=== PATIENT | female | born 1995 | race Caucasian/White ===

== ENCOUNTER 2017-08-23 20:39 | Emergency (ER) | payer BC ==
--- NOTE | 2017-08-23 22:05 | EDPHYS ---
Physician Documentation [facility] Name: May Ojeda Age: 22 yrs Sex: Female : 1995 Arrival Date: 08/23/2017 Time: 20:42 Bed 30 Private MD: ED Physician Mauri Mcneil HPI: 08/23 22:34 This 22 yrs old Female presents to ER via Ambulatory with complaints of Back jr8 Pain. 22:34 The patient presents with pain that is acute. The symptoms are located in the low back. jr8 Onset: The symptoms/episode began/occurred acutely, today. The pain radiates. Associated signs and symptoms: The patient has no apparent associated signs or symptoms. The problem was sustained from unknown cause. Modifying factors: The patient symptoms are alleviated by nothing, the patient symptoms are aggravated by bending, movement. Severity of symptoms: At their worst the symptoms were moderate, in the emergency department the symptoms are unchanged. The patient has not experienced similar symptoms in the past. The patient has not recently seen a physician. Stated that she woke up with backache today. Does not recall hurting back. Denies urinary complaints. Pain radiates to left hip region. 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 - Social history:: Smoking status: Patient uses tobacco products, smokes one-half pack cigarettes per day. ROS: 22:34 Eyes: Negative for injury, pain, redness, and discharge, ENT: Negative for injury, jr8 pain, and discharge, Neck: Negative for injury, pain, and swelling, Cardiovascular: Negative for chest pain, palpitations, and edema, Respiratory: Negative for shortness of breath, cough, wheezing, and pleuritic chest pain, Abdomen/GI: Negative for abdominal pain, nausea, vomiting, diarrhea, and constipation, MS/Extremity: Negative for injury and deformity, Skin: Negative for injury, rash, and discoloration, Neuro: Negative for headache, weakness, numbness, tingling, and seizure. 22:34 Back: Positive for pain at rest, pain with movement, radiated pain, of the left low back and left mid back. Exam: 22:34 Eyes: Pupils equal round and reactive to light, extra-ocular motions intact. Lids and jr8 lashes normal. Conjunctiva and sclera are non-icteric and not injected. Cornea within normal limits. Periorbital areas with no swelling, redness, or edema. ENT: Nares patent. No nasal discharge, no septal abnormalities noted. Tympanic membranes are normal and external auditory canals are clear. Oropharynx with no redness, swelling, or masses, exudates, or evidence of obstruction, uvula midline. Mucous membranes moist. Neck: Trachea midline, no thyromegaly or masses palpated, and no cervical lymphadenopathy. Supple, full range of motion without nuchal rigidity, or vertebral point tenderness. No Meningismus. Cardiovascular: Regular rate and rhythm with a normal S1 and S2. No gallops, murmurs, or rubs. Normal PMI, no JVD. No pulse deficits. Respiratory: Lungs have equal breath sounds bilaterally, clear to auscultation and percussion. No rales, rhonchi or wheezes noted. No increased work of breathing, no retractions or nasal flaring. Abdomen/GI: Soft, non-tender, with normal bowel sounds. No distension or tympany. No guarding or rebound. No evidence of tenderness throughout. Skin: Warm, dry with normal turgor. Normal color with no rashes, no lesions, and no evidence of cellulitis. MS/ Extremity: Pulses equal, no cyanosis. Neurovascular intact. Full, normal range of motion. Neuro: Awake and alert, GCS 15, oriented to person, place, time, and situation. Cranial nerves II-XII grossly intact. Motor strength 5/5 in all extremities. Sensory grossly intact. Cerebellar exam normal. Normal gait. 22:34 Back: pain, that is moderate, of the left low back and left mid back, ROM is painful, normal spinal alignment noted, CVA tenderness, is absent, muscle spasm, is appreciated in the left low back and left mid back, Straight leg raises: left lower extremity illicits pain, at 45 degrees. Vital Signs: 20:46 BP 140 / 90; Pulse 101; Resp 19; Temp 98.2(TE); Pulse Ox 100% on R/A; Weight 100.24 kg; la1 Height 5 ft. 6 in. (167.64 cm); 22:18 BP 133 / 56; Pulse 80; Resp 18; Pulse Ox 100% ; tl3 20:46 Body Mass Index 35.67 (100.24 kg, 167.64 cm) la1 MDM: 21:28 Patient medically screened. jr8 22:04 Data reviewed: vital signs, nurses notes, lab test result(s), and as a result, I will jr8 discharge patient. Data interpreted: Pulse oximetry: on room air is 100 %. Interpretation: normal. Counseling: I had a detailed discussion with the patient and/or guardian regarding: the historical points, exam findings, and any diagnostic results supporting the discharge/admit diagnosis, lab results, the need for outpatient follow up, a family practitioner, to return to the emergency department if symptoms worsen or persist or if there are any questions or concerns that arise at home. 22:04 Response to treatment: the patient's symptoms have markedly improved after treatment. 8 08/23 21:53 Order name: Urine Dipstick--Ancillary (enter results) rg2 08/23 21:53 Order name: Urine --Ancillary (enter results) rg2 Administered Medications: 22:14 Drug: Flexeril 10 mg Route: PO; tl3 22:15 Follow up: Response: Medication administered at discharge. tl3 22:15 Drug: [place] (7.5 mg-325 mg) 1 tabs Route: PO; tl3 22:16 Follow up: Response: Medication administered at discharge. tl3 22:15 Drug: TORadol 60 mg Route: IM; Site: right vastus lateralis; tl3 22:16 Follow up: Response: Medication administered at discharge. tl3 Disposition: 08/24 08:04 Co-signature as Attending Physician, Mauri Mcneil MD I agree with the assessment and nav plan of care. Disposition: 08/23/17 22:05 Discharged to Home. Impression: Muscle spasm of back, Radiculopathy, lumbar region. - Condition is Stable. - Discharge Instructions: Muscle Cramps and Spasms, Back Exercises, [id number], Heat Therapy. - Prescriptions for Ibuprofen 800 mg Oral Tablet - take 1 tablet by ORAL route every 12 hours As needed take with food; 20 tablet. Cyclobenzaprine 10 mg Oral Tablet - take 1 tablet by ORAL route every 8 hours As needed; 30 tablet. Tramadol 50 mg Oral Tablet - take 1 tablet by ORAL route every 8 hours as needed; 12 tablet. - Medication Reconciliation Form, Thank You Letter, Antibiotic Education, Prescription Opioid Use form. - Follow up: Private Physician; When: 5 - 6 days; Reason: Recheck today's complaints, Continuance of care, Re-evaluation by your physician. - Problem is new. - Symptoms have improved. Signatures: Dispatcher [employer] EDMS Marui Mcneil MD MD cha Roszak, Josh, PA PA jr8 Pietro Hutson RN RN la1 Audrey Mccabe RN RN tl3 Corrections: (The following items were deleted from the chart) 08/23 22:19 22:05 08/23/2017 22:05 Discharged to Home. Impression: Muscle spasm of back; tl3 Radiculopathy, lumbar region. Condition is Stable. Forms are Medication Reconciliation Form, Thank You Letter, Antibiotic Education, Prescription Opioid Use. Follow up: Private Physician; When: 5 - 6 days; Reason: Recheck today's complaints, Continuance of care, Re-evaluation by your physician. Problem is new. Symptoms have improved. jr8
--- NOTE | 2017-08-23 22:05 | ER ---
Nurse's Notes [facility] Name: May Ojeda Age: 22 yrs Sex: Female : 1995 Arrival Date: 08/23/2017 Time: 20:42 Bed 30 Private MD: Diagnosis: Muscle spasm of back;Radiculopathy, lumbar region Presentation: 08/23 20:45 Presenting complaint: Patient states: I woke up with a pain in my left lower back that la1 radiates to my hip. Pt denies urinary sx. Transition of care: patient was not received from another setting of care. Onset of symptoms was August 23, 2017. Initial Sepsis Screen: Does the patient meet any 2 criteria? No. Patient's initial sepsis screen is negative. Does the patient have a suspected source of infection? No. Patient's initial sepsis screen is negative. Care prior to arrival: None. 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 - Social history:: Smoking status: Patient uses tobacco products, smokes one-half pack cigarettes per day. Screenin:50 Abuse screen: Denies threats or abuse. Nutritional screening: No deficits noted. tl3 Tuberculosis screening: No symptoms or risk factors identified. Fall Risk None identified. Assessment: 21:50 General: Appears in no apparent distress. comfortable, obese, well groomed, well tl3 developed, well nourished, Behavior is calm, cooperative, appropriate for age. Pain: Complains of pain in left flank. Neuro: Level of Consciousness is awake, alert, obeys commands, Oriented to person, place, time, situation, Appropriate for age. Cardiovascular: Heart tones S1 S2 present Patient's skin is warm and dry. Respiratory: Airway is patent Trachea midline Respiratory effort is even, unlabored, Respiratory pattern is regular, symmetrical. GI: No signs and/or symptoms were reported involving the gastrointestinal system. : No signs and/or symptoms were reported regarding the genitourinary system. Urine is clear. EENT: No signs and/or symptoms were reported regarding the EENT system. Derm: No signs and/or symptoms reported regarding the dermatologic system. Musculoskeletal: No signs and/or symptoms reported regarding the musculoskeletal system. 22:18 Reassessment: No changes from previously documented assessment. Patient and/or family tl3 updated on plan of care and expected duration. Pain level reassessed. Patient is alert, oriented x 3, equal unlabored respirations, skin warm/dry/pink. Vital Signs: 20:46 BP 140 / 90; Pulse 101; Resp 19; Temp 98.2(TE); Pulse Ox 100% on R/A; Weight 100.24 kg; la1 Height 5 ft. 6 in. (167.64 cm); 22:18 BP 133 / 56; Pulse 80; Resp 18; Pulse Ox 100% ; tl3 20:46 Body Mass Index 35.67 (100.24 kg, 167.64 cm) la1 ED Course: 20:42 Patient arrived in ED. ds1 20:45 Triage completed. la1 20:46 Arm band placed on left wrist. la1 21:26 Audrey Mccabe, JOHNNIE is Primary Nurse. tl3 21:28 Hunter Elias PA is PHCP. jr8 21:28 Mauri Mcneil MD is Attending Physician. jr8 21:50 No apparent distress. Awaiting ED provider evaluation. tl3 21:50 Patient has correct armband on for positive identification. Placed in gown. Bed in low tl3 position. Call light in reach. Side rails up X 1. Adult w/ patient. Pulse ox on. NIBP on. 21:50 No provider procedures requiring assistance completed. Patient did not have IV access tl3 during this emergency room visit. Administered Medications: 22:14 Drug: Flexeril 10 mg Route: PO; tl3 22:15 Follow up: Response: Medication administered at discharge. tl3 22:15 Drug: [place] (7.5 mg-325 mg) 1 tabs Route: PO; tl3 22:16 Follow up: Response: Medication administered at discharge. tl3 22:15 Drug: TORadol 60 mg Route: IM; Site: right vastus lateralis; tl3 22:16 Follow up: Response: Medication administered at discharge. tl3 Outcome: 22:05 Discharge ordered by . jr8 22:18 Discharged to home ambulatory. tl3 22:18 Condition: good 22:18 Discharge instructions given to patient, Instructed on discharge instructions, follow up and referral plans. medication usage, Demonstrated understanding of instructions, follow-up care, medications, Prescriptions given X 3. 22:19 Patient left the ED. tl3 Signatures: Tara Mckinney Josh, PA PA jr8 Pietro Hutson RN RN la1 Audrey Mccabe RN RN tl3
[2017-08-23] MEDS ORDERED: KETOROLAC 30 MG/ML INJ ONE (22:09)
[2017-08-23] MEDS ORDERED: CYCLOBENZAPRINE 10 MG TAB ONE (22:09)
[2017-08-23] MEDS ORDERED: HYDROCODONE/APAP 7.5/325 MG TAB ONE (22:09)
[2017-08-23 22:22] LABS: Urine Blood NEGATIVE (NEG); Urine Glucose NEGATIVE (NEG); Urine Protein NEGATIVE (NEG); Urine pH 6.5 (5.0-7.0)
[2017-08-23 22:57] VITALS: TEMP 98.2; O2SAT 100
[2017-08-23 22:58] VITALS: BP 133/56
== END 2017-08-23 22:19 | disposition home or self-care (01) ==
LOC: ER 20:39
DX: M54.16 Radiculopathy, lumbar region (principal); M62.830 Muscle spasm of back; F17.210 Nicotine dependence, cigarettes, uncomplicated; Z88.1 Allergy status to other antibiotic agents
CPT/HCPCS: 81003; 81025; 96372; 99283

== ENCOUNTER 2018-01-12 19:27 | Emergency (ER) | payer BC, OTHER ==
[2018-01-12] MEDS ORDERED: ONDANSETRON 4 MG (ODT) TAB ONE (21:04)
[2018-01-12 21:11] LABS: Urine Blood NEGATIVE (NEG); Urine Glucose NEGATIVE (NEG); Urine Protein TRACE (NEG); Urine pH 6.5 (5.0-7.0)
[2018-01-12 21:11] LABS: Urine Bacteria <20 /HPF (<20); Urine Culture Reflex Order NOT NEEDED; Urine Mucus 1+ /HPF (NONE SEEN); Urine RBC <5 /HPF (NONE SEEN)
[2018-01-13] MEDS ORDERED: NA CHLORIDE 0.9% 1,000 ML ONE (00:11)
[2018-01-13] MEDS ORDERED: FAMOTIDINE 20 MG/2 ML VIAL IV ONE (00:11)
[2018-01-13] MEDS ORDERED: ONDANSETRON 4 MG/2 ML VIAL ONE (00:11)
[2018-01-13 00:39] LABS: Absolute Lymphocytes (CBC) 3.2 K/uL (0.7-4.9); Absolute Monocytes 0.6 K/uL (0.1-1.3); Basophils % 0.8 % (0-1.3); Eosinophils % 2.3 % (0-4.4); Hematocrit 38.2 % (36.0-45.0); Lymphocytes % 35.1 % (15.3-44.8); MCH 29.4 pg (27.0-35.0); MCV 84.7 fL (80-100); MPV 8.1 fL (7.6-11.3); Monocytes % 6.4 % (3.3-12.3); RBC Red Blood Cell Count 4.51 M/uL (3.86-4.86)
[2018-01-13 00:51] LABS: ALT/SGPT 23 U/L (12-78); AST/SGOT 16 U/L (15-37); Albumin 3.8 g/dL (3.4-5.0); Alkaline Phosphatase 63 U/L (45-117); BUN Blood Urea Nitrogen 12 mg/dL (7-18); Bicarbonate 28 mmol/L (21-32); Bilirubin Direct < 0.1 mg/dL (0-0.2); Bilirubin Total 0.2 mg/dL (0.2-1.0); Glucose Level 108 mg/dL (74-106); Lipase 190 U/L (73-393); Potassium 3.8 mmol/L (3.5-5.1); Protein, Total 7.9 g/dL (6.4-8.2); Sodium Level 141 mmol/L (136-145)
--- NOTE | 2018-01-13 00:59 | EDPHYS ---
Physician Documentation [facility] Name: May Ojeda Age: 22 yrs Sex: Female : 1995 Arrival Date: 01/12/2018 Time: 19:31 Bed 2 Private MD: Gigi Alcala T ED Physician Adrián Morris HPI: 01/13 02:04 This 22 yrs old Female presents to ER via Ambulatory with complaints of gs Abdominal Cramping, Vomiting. 02:04 The patient presents to the emergency department with vomiting, abdominal pain, gs described as crampy. Onset: The symptoms/episode began/occurred yesterday. Possible causes: unknown. The symptoms are aggravated by nothing. The symptoms are alleviated by nothing. Associated signs and symptoms: Pertinent positives: abdominal pain, crampy. Severity of symptoms: At their worst the symptoms were moderate in the emergency department the symptoms have improved moderately. The patient has not experienced similar symptoms in the past. The patient has not recently seen a physician. 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 - Social history:: Smoking status: Patient uses tobacco products, smokes one-half pack cigarettes per day. - Ebola Screening: : Patient denies travel to an Ebola-affected area in the 21 days before illness onset. ROS: 01/13 02:04 All other systems are negative. gs Exam: 02:04 Head/Face: Normocephalic, atraumatic. Eyes: Pupils equal round and reactive to light, gs extra-ocular motions intact. Lids and lashes normal. Conjunctiva and sclera are non-icteric and not injected. Cornea within normal limits. Periorbital areas with no swelling, redness, or edema. ENT: Nares patent. No nasal discharge, no septal abnormalities noted. Tympanic membranes are normal and external auditory canals are clear. Oropharynx with no redness, swelling, or masses, exudates, or evidence of obstruction, uvula midline. Mucous membranes moist. Neck: Trachea midline, no thyromegaly or masses palpated, and no cervical lymphadenopathy. Supple, full range of motion without nuchal rigidity, or vertebral point tenderness. No Meningismus. Chest/axilla: Normal chest wall appearance and motion. Nontender with no deformity. No lesions are appreciated. Cardiovascular: Regular rate and rhythm with a normal S1 and S2. No gallops, murmurs, or rubs. Normal PMI, no JVD. No pulse deficits. Respiratory: Lungs have equal breath sounds bilaterally, clear to auscultation and percussion. No rales, rhonchi or wheezes noted. No increased work of breathing, no retractions or nasal flaring. Back: No spinal tenderness. No costovertebral tenderness. Full range of motion. Skin: Warm, dry with normal turgor. Normal color with no rashes, no lesions, and no evidence of cellulitis. MS/ Extremity: Pulses equal, no cyanosis. Neurovascular intact. Full, normal range of motion. Neuro: Awake and alert, GCS 15, oriented to person, place, time, and situation. Cranial nerves II-XII grossly intact. Motor strength 5/5 in all extremities. Sensory grossly intact. Cerebellar exam normal. Normal gait. 02:04 Constitutional: The patient appears alert, awake. 02:04 Constitutional: The patient appears uncomfortable. 02:04 Abdomen/GI: Palpation: mild abdominal tenderness, in all quadrants. Vital Signs: 01/12 19:52 BP 127 / 99; Pulse 100; Resp 18; Temp 97.6(TE); Pulse Ox 97% on R/A; Weight 102.97 kg aj1 (R); Height 5 ft. 6 in. (167.64 cm) (R); 21:00 BP 144 / 72; Pulse 91; Resp 25; Pulse Ox 97% ; bp 21:45 BP 135 / 85; Pulse 82; Resp 19 S; Pulse Ox 97% on R/A; cc3 22:00 BP 131 / 73; Pulse 79; Resp 16; Pulse Ox 96% ; bp 01/13 00:00 BP 134 / 91; Pulse 64; Resp 20; Pulse Ox 97% ; bp 00:54 BP 115 / 69; Pulse 67; Resp 17; Pulse Ox 99% ; bp 01/12 19:52 Body Mass Index 36.64 (102.97 kg, 167.64 cm) aj MDM: 01/12 20:48 Patient medically screened. 01/13 02:04 Differential diagnosis: Nonspecific abd pain, pancreatitis, viral gastroenteritis, gs gastroenteritis. Data reviewed: vital signs, nurses notes. Response to treatment: the patient's symptoms have markedly improved after treatment, the patient's condition has returned to base line, patient is well hydrated. and as a result, I will discharge patient. 01/12 20:35 Order name: Strep; Complete Time: 23:19 [facility] 01/12 20:35 Order name: Urine Microscopic Only; Complete Time: 23:19 [facility] 01/12 20:48 Order name: Flu; Complete Time: 23:19 cc3 01/12 20:55 Order name: Urine Dipstick--Ancillary (enter results); Complete Time: 23:19 tx 01/12 20:55 Order name: Urine --Ancillary (enter results); Complete Time: 23:19 tx 01/12 21:27 Order name: Throat Culture EDMS 01/12 23:20 Order name: Basic Metabolic Panel; Complete Time: 00:54 01/12 23:20 Order name: CBC with Diff; Complete Time: 00:54 01/12 23:20 Order name: Hepatic Function; Complete Time: 00:54 01/12 23:20 Order name: Lipase; Complete Time: 00:54 01/12 20:35 Order name: Urine Test (obtain specimen); Complete Time: 20:54 [facility] 01/12 20:35 Order name: Urine Dipstick-Ancillary (obtain specimen); Complete Time: 20:54 [facility] 01/12 20:49 Order name: EKG - Nurse/Tech; Complete Time: 20:59 01/12 20:50 Order name: PO challenge; Complete Time: 20:59 01/12 23:20 Order name: IV Saline Lock; Complete Time: 00:34 01/12 23:20 Order name: Labs collected and sent; Complete Time: 00:34 Administered Medications: 01/12 20:59 Drug: Zofran 4 mg Route: PO; bp 21:17 Follow up: Response: Nausea is decreased bp 01/13 00:00 Drug: Pepcid 20 mg Route: IVP; Site: right antecubital; cc3 01:05 Follow up: Response: Nausea is decreased bp 00:00 Drug: NS 0.9% 1000 ml Route: IV; Rate: 1 bolus; Site: right antecubital; cc3 01:06 Follow up: IV Status: Completed infusion; IV Intake: 1000ml bp 00:05 Drug: Zofran 4 mg Route: IVP; Site: right antecubital; cc3 01:06 Follow up: Response: Nausea is decreased bp Disposition: 01/13/18 00:58 Discharged to Home. Impression: Vomiting, Generalized abdominal pain. - Condition is Stable. - Discharge Instructions: Abdominal Pain, Adult, Nausea and Vomiting, Adult. - Medication Reconciliation Form, Thank You Letter, Antibiotic Education, Prescription Opioid Use, Work release form form. - Follow up: Private Physician; When: 2 - 3 days; Reason: Re-evaluation by your physician. Signatures: Dispatcher [employer] EDMS Jeanna Kc RN RN aj1 Alberta Mccormick, VEGETABLE HARVEST WORKER-C VEGETABLE HARVEST WORKER-Csnw Adrián Morris MD MD gs Peltier, Brian, RN RN bp Cordel, Charlene cc3 Corrections: (The following items were deleted from the chart) 01:20 00:58 01/13/2018 00:58 Discharged to Home. Impression: Vomiting; Generalized abdominal bp pain. Condition is Stable. Forms are Medication Reconciliation Form, Thank You Letter, Antibiotic Education, Prescription Opioid Use. Follow up: Private Physician; When: 2 - 3 days; Reason: Re-evaluation by your physician. gs
--- NOTE | 2018-01-13 00:59 | ER ---
Nurse's Notes [facility] Name: May Ojeda Age: 22 yrs Sex: Female : 1995 Arrival Date: 01/12/2018 Time: 19:31 Bed 2 Private MD: Gigi Alcala T Diagnosis: Vomiting;Generalized abdominal pain Presentation: 01/12 19:49 Presenting complaint: Patient states: Vomiting, crampy lower abdominal pain, sore aj1 throat and diarrhea for the past 2 days. Denies fever. Transition of care: patient was not received from another setting of care. Onset of symptoms. Risk Assessment: Do you want to hurt yourself or someone else? Patient reports no desire to harm self or others. Initial Sepsis Screen: Does the patient meet any 2 criteria? HR > 90 bpm. No. Patient's initial sepsis screen is negative. Does the patient have a suspected source of infection? Yes: Acute abdominal pain. Care prior to arrival: None. 19:49 Method Of Arrival: Ambulatory aj1 19:49 Acuity: SELENE 3 aj1 Triage Assessment: 19:52 General: Appears in no apparent distress. comfortable, Behavior is calm, cooperative, aj1 appropriate for age. Pain: Complains of pain in right lower quadrant and left lower quadrant Pain does not radiate. Pain currently is 6 out of 10 on a pain scale. Quality of pain is described as crampy. EENT: Reports sore throat. Neuro: Level of Consciousness is awake, alert, obeys commands. Cardiovascular: Patient's skin is warm and dry. Respiratory: Airway is patent Respiratory effort is even, unlabored, Respiratory pattern is regular, symmetrical. GI: Reports lower abdominal pain, cramping, diarrhea, nausea, vomiting. 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 - Social history:: Smoking status: Patient uses tobacco products, smokes one-half pack cigarettes per day. - Ebola Screening: : Patient denies travel to an Ebola-affected area in the 21 days before illness onset. Screenin:35 Abuse screen: Denies threats or abuse. Denies injuries from another. Nutritional bp screening: No deficits noted. Tuberculosis screening: No symptoms or risk factors identified. Fall Risk None identified. Assessment: 20:30 General: Appears in no apparent distress. uncomfortable, obese, Behavior is calm, bp cooperative, appropriate for age. Pain: Complains of pain in abdomen and left lower quadrant and right lower quadrant. Neuro: Level of Consciousness is awake, alert, obeys commands, Oriented to person, place, time, situation, Appropriate for age. Cardiovascular: No deficits noted. Respiratory: Airway is patent Respiratory effort is even, unlabored, Respiratory pattern is regular, symmetrical. GI: Bowel sounds present X 4 quads. Abd is soft X 4 quads. : No signs and/or symptoms were reported regarding the genitourinary system. EENT: No deficits noted. Derm: No deficits noted. Musculoskeletal: Circulation, motion, and sensation intact. Range of motion: intact in all extremities. 21:00 Reassessment: PO CHALLENGE SUCCESSFUL, LAB RESULTS AND DISPO PENDING. bp 01/13 00:00 Reassessment: FURTHER STUDIES IN PROCESS, IVF INFUSING. bp 01:19 Reassessment: PT D/C HOME AMBULATORY, DX WITH NONSPECIFIC ABD PAIN. bp Vital Signs: 01/12 19:52 BP 127 / 99; Pulse 100; Resp 18; Temp 97.6(TE); Pulse Ox 97% on R/A; Weight 102.97 kg aj1 (R); Height 5 ft. 6 in. (167.64 cm) (R); 21:00 BP 144 / 72; Pulse 91; Resp 25; Pulse Ox 97% ; bp 21:45 BP 135 / 85; Pulse 82; Resp 19 S; Pulse Ox 97% on R/A; cc3 22:00 BP 131 / 73; Pulse 79; Resp 16; Pulse Ox 96% ; bp 01/13 00:00 BP 134 / 91; Pulse 64; Resp 20; Pulse Ox 97% ; bp 00:54 BP 115 / 69; Pulse 67; Resp 17; Pulse Ox 99% ; bp 01/12 19:52 Body Mass Index 36.64 (102.97 kg, 167.64 cm) aj1 ED Course: 01/12 19:31 Patient arrived in ED. es 19:31 Gigi Alcala MD is Private Physician. es 19:51 Triage completed. aj1 19:52 Arm band placed on Patient placed in waiting room. aj1 20:34 Ericka Noel, RN is Primary Nurse. bb 20:35 Azael Garcia, RN is Primary Nurse. bp 20:35 Patient has correct armband on for positive identification. Bed in low position. Call bp light in reach. Side rails up X2. 20:36 Adrián Morris MD is Attending Physician. 01/13 00:00 Inserted saline lock: 20 gauge in right antecubital area, using aseptic technique. bp Blood collected. 01:06 No provider procedures requiring assistance completed. IV discontinued, intact, bp bleeding controlled, No redness/swelling at site. Pressure dressing applied. Administered Medications: 01/12 20:59 Drug: Zofran 4 mg Route: PO; bp 21:17 Follow up: Response: Nausea is decreased bp 01/13 00:00 Drug: Pepcid 20 mg Route: IVP; Site: right antecubital; cc3 01:05 Follow up: Response: Nausea is decreased bp 00:00 Drug: NS 0.9% 1000 ml Route: IV; Rate: 1 bolus; Site: right antecubital; cc3 01:06 Follow up: IV Status: Completed infusion; IV Intake: 1000ml bp 00:05 Drug: Zofran 4 mg Route: IVP; Site: right antecubital; cc3 01:06 Follow up: Response: Nausea is decreased bp Intake: 01:06 IV: 1000ml; Total: 1000ml. bp Outcome: 00:58 Discharge ordered by MD. 01:20 Discharged to home ambulatory, with family. bp 01:20 Condition: stable 01:20 Discharge instructions given to patient, Instructed on discharge instructions, follow up and referral plans. Demonstrated understanding of instructions, follow-up care. 01:20 Patient left the ED. bp Signatures: Jeanna Kc RN RN ajMilla Jovel Brenda, JOHNNIE RN Adrián Mercedes MD MD gs Peltier, Brian, RN RN Xena Rodriguez cc3
[2018-01-13 02:13] VITALS: TEMP 97.6
[2018-01-13 02:18] VITALS: BP 115/69; O2SAT 99
--- NOTE | 2018-01-13 07:56 | EKG ---
Test Date: 2018-01-12 Test Time: 20:56:07 Board Winder: GOLDEN MEASUREMENT RESULTS: Intervals: Rate: 90 OH: 140 QRSD: 82 QT: 368 QTc: 450 [place]: P: 19 OH: 140 QRS: 19 T: 19 INTERPRETIVE STATEMENTS: Normal sinus rhythm Normal ECG No previous ECG available for comparison Electronically Signed On 01-13-18 07:56:15 CDT by Tapan Chandler
== END 2018-01-13 01:20 | disposition home or self-care (01) ==
LOC: ER 19:27
DX: R11.10 Vomiting, unspecified (principal); F17.210 Nicotine dependence, cigarettes, uncomplicated; Z88.8 Allergy status to other drugs, medicaments and biological substances
CPT/HCPCS: 36415; 80048; 80076; 81003; 81015; 81025; 83690; 85025; 87070; 87081; 87804; 93005; 96361; 96374; 96375; 99284; J2405; J7030

== ENCOUNTER 2018-03-20 19:58 | Emergency (ER) | payer OTHER ==
[2018-03-20] MEDS ORDERED: LEVALBUTEROL 1.25 MG/3 ML NEB ONE (21:46)
--- NOTE | 2018-03-20 22:04 | RAD REPORT ---
EXAM DESCRIPTION: RAD - Chest Pa And Lat (2 Views) - 03/20/2018 9:53 pm CLINICAL HISTORY: Cough and congestion, chills COMPARISON: January 2012 TECHNIQUE: PA and lateral views of the chest were obtained. FINDINGS: The lungs are clear. Heart size is normal and central vasculature is within normal limit s. No pleural effusion or pneumothorax seen. No acute bony finding noted. No aortic abnormality. IMPRESSION: No acute cardiopulmonary process. No significant interval change.
--- NOTE | 2018-03-20 22:26 | ER ---
Nurse's Notes [facility] Name: May Ojeda Age: 22 yrs Sex: Female : 1995 Arrival Date: 03/20/2018 Time: 20:02 Bed 5 Private MD: Diagnosis: Bronchitis, not specified as acute or chronic Presentation: 03/20 20:08 Presenting complaint: Patient states: Cough, congestion, chills/sweating, Chest pain la1 with cough. Transition of care: patient was not received from another setting of care. Onset of symptoms was March 20, 2018. Risk Assessment: Do you want to hurt yourself or someone else? Patient reports no desire to harm self or others. Initial Sepsis Screen: Does the patient meet any 2 criteria? No. Patient's initial sepsis screen is negative. Does the patient have a suspected source of infection? No. Patient's initial sepsis screen is negative. Care prior to arrival: None. 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 - Social history:: Smoking status: Patient uses tobacco products, smokes one-half pack cigarettes per day. - Ebola Screening: : No symptoms or risks identified at this time. - Family history:: not pertinent. - Hospitalizations: : No recent hospitalization is reported. Screenin:41 Abuse screen: Denies threats or abuse. Nutritional screening: No deficits noted. jd3 Tuberculosis screening: No symptoms or risk factors identified. Fall Risk Ambulatory Aid- None/Bed Rest/Nurse Assist (0 pts). Gait- Normal/Bed Rest/Wheelchair (0 pts) Mental Status- Oriented to own ability (0 pts). Total Murrell Fall Scale indicates No Risk (0-24 pts). Assessment: 21:34 General: Appears in no apparent distress. uncomfortable, Behavior is calm, cooperative, jd3 appropriate for age. Pain: Complains of pain in chest Quality of pain is described as aching. Neuro: Level of Consciousness is awake, alert, obeys commands, Oriented to person, place, time, situation. Cardiovascular: Heart tones S1 S2 present Capillary refill < 3 seconds Patient's skin is warm and dry. Respiratory: Reports cough that is productive, congestion Airway is patent Respiratory effort is even, unlabored, Respiratory pattern is regular, symmetrical, Breath sounds are clear bilaterally. GI: No signs and/or symptoms were reported involving the gastrointestinal system. : No signs and/or symptoms were reported regarding the genitourinary system. EENT: No signs and/or symptoms were reported regarding the EENT system. Derm: Skin is intact, Skin is dry, Skin is normal, Skin temperature is warm. Musculoskeletal: Circulation, motion, and sensation intact. Range of motion: intact in all extremities. 21:52 Reassessment: Patient appears in no apparent distress at this time. Patient and/or jd3 family updated on plan of care and expected duration. Pain level reassessed. Patient is alert, oriented x 3, equal unlabored respirations, skin warm/dry/pink. 23:36 Reassessment: Patient is alert, oriented x 3, equal unlabored respirations, skin bb warm/dry/pink. pt verbalized understanding of and agrees to plan of care discharge instructions given pt ambulated with steady gait to exit. Vital Signs: 20:09 BP 146 / 96; Pulse 117; Resp 18; Temp 97.7(TE); Pulse Ox 98% on R/A; Weight 100.7 kg; la1 Height 5 ft. 6 in. (167.64 cm); 23:37 BP 146 / 91; Pulse 96; Resp 18 S; Temp 98.8(O); Pulse Ox 99% on R/A; bb 20:09 Body Mass Index 35.83 (100.70 kg, 167.64 cm) la1 ED Course: 20:02 Patient arrived in ED. es 20:09 Triage completed. la1 20:09 Arm band placed on right wrist. la1 21:31 Jonathan Vasques, JOHNNIE is Primary Nurse. jd3 21:32 Lepooldo Feliciano MD is Attending Physician. rn 21:41 Patient has correct armband on for positive identification. Placed in gown. Bed in low jd3 position. Call light in reach. Side rails up X 1. 23:37 No provider procedures requiring assistance completed. Patient did not have IV access bb during this emergency room visit. Administered Medications: 21:41 Drug: Xopenex 1.25 mg Route: Inhalation; jd3 21:52 Follow up: Response: No adverse reaction jd3 23:25 Drug: Zithromax 500 mg Route: PO; bb 23:36 Follow up: Response: No adverse reaction bb Outcome: 22:26 Discharge ordered by . rn 23:37 Discharged to home ambulatory. bb 23:37 Condition: stable 23:37 Discharge instructions given to patient, Instructed on discharge instructions, follow up and referral plans. medication usage, Demonstrated understanding of instructions, follow-up care, medications, Prescriptions given X 2. 23:39 Patient left the ED. bb Signatures: Milla Santiago Brenda RN RN bb Leopoldo Feliciano MD MD rn Attema, Lee, RN RN la1 Jonathan Vasques RN RN jd3 Corrections: (The following items were deleted from the chart) 20:10 20:08 Acuity: SELENE 4 la1 la1
--- NOTE | 2018-03-20 22:27 | EDPHYS ---
Physician Documentation [facility] Name: May Ojeda Age: 22 yrs Sex: Female : 1995 Arrival Date: 03/20/2018 Time: 20:02 Bed 5 Private MD: ED Physician Leopoldo Feliciano HPI: 03/20 21:46 This 22 yrs old Female presents to ER via Ambulatory with complaints of rn Cough, Chest Congestion, Chest Pain. 21:46 The patient or guardian reports cough, flu symptoms. Onset: The symptoms/episode rn began/occurred 2 day(s) ago. Severity of symptoms: At their worst the symptoms were mild, in the emergency department the symptoms are unchanged. Modifying factors: The symptoms are alleviated by nothing, the symptoms are aggravated by nothing. The patient has experienced a previous episode. Reports flu like symptoms for a couple of days, + chills, cough, congestion, similar in past when had bronchitis, + smoker, no trauma, no hemoptysis, no hx of dvt/PE.. 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 - Social history:: Smoking status: Patient uses tobacco products, smokes one-half pack cigarettes per day. - Ebola Screening: : No symptoms or risks identified at this time. - Family history:: not pertinent. - Hospitalizations: : No recent hospitalization is reported. ROS: 21:46 Constitutional: + subjective fever and chills Eyes: Negative for injury, pain, redness, rn and discharge, ENT: + congestion Neck: Negative for injury, pain, and swelling, Cardiovascular: + chest pain with cough Respiratory: + sob and cough Abdomen/GI: Negative for abdominal pain, nausea, vomiting, diarrhea, and constipation, MS/Extremity: Negative for injury and deformity, Skin: Negative for injury, rash, and discoloration, Neuro: Negative for headache, weakness, numbness, tingling, and seizure. Exam: 21:46 Constitutional: This is a well developed, well nourished patient who is awake, alert, rn and in no acute distress. Head/Face: Normocephalic, atraumatic. Eyes: Pupils equal round and reactive to light, extra-ocular motions intact. Lids and lashes normal. Conjunctiva and sclera are non-icteric and not injected. Cornea within normal limits. Periorbital areas with no swelling, redness, or edema. ENT: mild pharyngeal erythema, no stridor, no exudate Neck: trachea midline, no cervical LAD Cardiovascular: tachycardic, regular, no murmur Respiratory: + faint bilateral wheezing, no increased respiratory effort, speaking full sentences Skin: Warm, dry with normal turgor. Normal color with no rashes, no lesions, and no evidence of cellulitis. MS/ Extremity: Pulses equal, no cyanosis. Neurovascular intact. Full, normal range of motion. Equal circumference. Neuro: Awake and alert, GCS 15, oriented to person, place, time, and situation. Cranial nerves II-XII grossly intact. Motor strength 5/5 in all extremities. Sensory grossly intact. Cerebellar exam normal. Normal gait. Vital Signs: 20:09 BP 146 / 96; Pulse 117; Resp 18; Temp 97.7(TE); Pulse Ox 98% on R/A; Weight 100.7 kg; la1 Height 5 ft. 6 in. (167.64 cm); 23:37 BP 146 / 91; Pulse 96; Resp 18 S; Temp 98.8(O); Pulse Ox 99% on R/A; bb 20:09 Body Mass Index 35.83 (100.70 kg, 167.64 cm) la1 MDM: 21:32 Patient medically screened. rn 22:25 Differential Diagnosis: Bronchitis Influenza Upper Respiratory Infection Viral Syndrome rn Pneumonia. Data reviewed: vital signs, nurses notes, lab test result(s), radiologic studies, plain films, and as a result, I will discharge patient. Counseling: I had a detailed discussion with the patient and/or guardian regarding: the historical points, exam findings, and any diagnostic results supporting the discharge/admit diagnosis, lab results, radiology results, the need for outpatient follow up, to return to the emergency department if symptoms worsen or persist or if there are any questions or concerns that arise at home. Response to treatment: the patient's symptoms have mildly improved after treatment, and as a result, I will discharge patient. Special discussion: I discussed with the patient/guardian in detail that at this point there is no indication for admission to the hospital. It is understood, however, that if the symptoms persist or worsen the patient needs to return immediately for re-evaluation. 22:26 Counseling: I had a detailed discussion with the patient and/or guardian regarding: rn smoking cessation. 03/20 20:10 Order name: Flu la1 03/20 21:29 Order name: Influenza Screen (A ; Complete Time: 21:33 EDMS 03/20 20:25 Order name: XRAY Chest Pa And Lat (2 Views) rn 03/20 22:06 Order name: RAD; Complete Time: 22:25 EDMS Administered Medications: 21:41 Drug: Xopenex 1.25 mg Route: Inhalation; jd3 21:52 Follow up: Response: No adverse reaction jd3 23:25 Drug: Zithromax 500 mg Route: PO; bb 23:36 Follow up: Response: No adverse reaction bb Disposition: 03/20/18 22:26 Discharged to Home. Impression: Bronchitis, not specified as acute or chronic. - Condition is Stable. - Discharge Instructions: Acute Bronchitis, Adult. - Prescriptions for Zithromax Z- Elpidio 250 mg Oral Tablet - take 1 tablet by ORAL route as directed for 5 days Day 1 - take two (2) tablets one time. Day 2, 3, 4 , 5 take one (1) tablet once daily.; 6 tablet. Albuterol Sulfate 90 mcg/actuation - inhale 1-2 puff by INHALATION route every 4-6 hours; 1 Inhaler. - Work release form, Medication Reconciliation Form, Thank You Letter, Antibiotic Education, Prescription Opioid Use form. - Follow up: Private Physician; When: As needed; Reason: Recheck today's complaints, Re-evaluation by your physician. - Problem is new. - Symptoms have improved. Signatures: Dispatcher [employer] EDMS Ericka Noel RN RN bb Nieto, Roman, MD MD rn Attema, Lee, RN RN la1 Jonathan Vasques RN RN jd3 Corrections: (The following items were deleted from the chart) 23:39 22:26 03/20/2018 22:26 Discharged to Home. Impression: Bronchitis, not specified as bb acute or chronic. Condition is Stable. Forms are Medication Reconciliation Form, Thank You Letter, Antibiotic Education, Prescription Opioid Use. Follow up: Private Physician; When: As needed; Reason: Recheck today's complaints, Re-evaluation by your physician. Problem is new. Symptoms have improved. rn
[2018-03-20] MEDS ORDERED: AZITHROMYCIN 250 MG TAB ONE (23:30)
[2018-03-21 00:59] VITALS: BP 146/91; TEMP 98.8; O2SAT 99
== END 2018-03-20 23:39 | disposition home or self-care (01) ==
LOC: ER 19:58
DX: J40 Bronchitis, not specified as acute or chronic (principal); F17.210 Nicotine dependence, cigarettes, uncomplicated
CPT/HCPCS: 71046; 87804; 99284

== ENCOUNTER 2019-03-15 06:09 | Emergency (ER) | payer OTHER ==
--- NOTE | 2019-03-15 06:49 | ER ---
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 Transition of care: patient was not received from another setting of care. Onset of symptoms is unknown. Risk Assessment: Do you want to hurt yourself or someone else? Patient reports no desire to harm self or others. Initial Sepsis Screen: Does the patient meet any 2 criteria? No. Patient's initial sepsis screen is negative. Does the patient have a suspected source of infection? No. Patient's initial sepsis screen is negative. Care prior to arrival: None. 06:20 Method Of Arrival: Ambulatory ak1 06:20 Acuity: SELENE 4 ak1 Triage Assessment: 06:21 General: Appears in no apparent distress. Behavior is calm, cooperative. 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 - Social history:: Smoking status: Patient uses tobacco products, smokes one-half pack cigarettes per day. - Ebola Screening: : No symptoms or risks identified at this time. Screenin:08 Abuse screen: Denies threats or abuse. Denies injuries from another. Nutritional ao screening: No deficits noted. Tuberculosis screening: No symptoms or risk factors identified. Fall Risk None identified. Assessment: 06:30 General: Appears in no apparent distress. comfortable, Behavior is calm, cooperative, ao appropriate for age. Pain: Denies pain. Neuro: Level of Consciousness is awake, alert, obeys commands, Oriented to person, place, time, situation, Appropriate for age Patient Care Technician are equal bilaterally. Cardiovascular: Reports None Capillary refill < 3 seconds Patient's skin is warm and dry. Respiratory: Airway is patent Respiratory effort is even, unlabored, Respiratory pattern is regular, symmetrical. GI: Abdomen is obese. : Reports urgency, urinary frequency. EENT: No signs and/or symptoms were reported regarding the EENT system. Derm: No signs and/or symptoms reported regarding the dermatologic system. Musculoskeletal: No signs and/or symptoms reported regarding the musculoskeletal system. Vital Signs: 06:17 BP 146 / 86; Pulse 98; Resp 16; Temp 98.5; Pulse Ox 98% on R/A; Weight 105.69 kg (R); ak1 Height 5 ft. 6 in. (167.64 cm) (R); Pain 5/10; 06:17 Body Mass Index 37.61 (105.69 kg, 167.64 cm) ak1 ED Course: 06:11 Patient arrived in ED. ds1 06:13 Hunter Elias PA is PHCP. jr8 06:13 Ruddy Lyons MD is Attending Physician. jr8 06:17 Arm band placed on Patient placed in an exam room, on a stretcher, Patient notified of ak1 wait time. 06:20 Triage completed. ak1 06:40 Nirmal Virgen, RN is Primary Nurse. jb4 07:08 No provider procedures requiring assistance completed. Patient did not have IV access ao during this emergency room visit. 07:09 Patient has correct armband on for positive identification. Pulse ox on. NIBP on. ao Administered Medications: 06:55 Drug: DiFLUcan 150 mg Route: PO; ao 06:55 Follow up: Response: Medication administered at discharge. ao Outcome: 06:48 Discharge ordered by MD. jr8 07:08 Discharged to home ambulatory. ao 07:08 Condition: stable 07:08 Discharge instructions given to patient, Instructed on discharge instructions, follow up and referral plans. Demonstrated understanding of instructions, follow-up care. 07:09 Patient left the ED. ao Signatures: Tara Mckinney ds1 Hunter Elias PA PA jr8 Anjali Stoddard RN RN ak1 Nato Fountain RN RN Nirmal Mae, RN RN jb4
--- NOTE | 2019-03-15 06:49 | EDPHYS ---
Physician Documentation [facility] Name: May Ojeda Age: 23 yrs Sex: Female : 1995 Arrival Date: 03/15/2019 Time: 06:11 Bed 8 Private MD: ED Physician Ruddy Lyons HPI: 03/15 06:48 This 23 yrs old Female presents to ER via Ambulatory with complaints of jr8 Vaginal Discharge. 06:48 Onset: The symptoms/episode began/occurred gradually, 2 day(s) ago. Modifying factors: jr8 The symptoms are alleviated by nothing, the symptoms are aggravated by urinating. Associated signs and symptoms: The patient has no apparent associated signs or symptoms. Severity of symptoms: At their worst the symptoms were mild, in the emergency department the symptoms are unchanged. The patient has not experienced similar symptoms in the past. The patient has not recently seen a physician. Patient has been on Augmentin for bronchitis. On day nine today. Stated that she started to have vaginal discharge that is white along with rawness and itching. 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 - Social history:: Smoking status: Patient uses tobacco products, smokes one-half pack cigarettes per day. - Ebola Screening: : No symptoms or risks identified at this time. ROS: 06:48 Eyes: Negative for injury, pain, redness, and discharge, ENT: Negative for injury, jr8 pain, and discharge, Neck: Negative for injury, pain, and swelling, Cardiovascular: Negative for chest pain, palpitations, and edema, Respiratory: Negative for shortness of breath, cough, wheezing, and pleuritic chest pain, Abdomen/GI: Negative for abdominal pain, nausea, vomiting, diarrhea, and constipation, Back: Negative for injury and pain, MS/Extremity: Negative for injury and deformity, Skin: Negative for injury, rash, and discoloration, Neuro: Negative for headache, weakness, numbness, tingling, and seizure. 06:48 : Positive for vaginal discharge, vaginal itching, Negative for urinary symptoms, pelvic pain, flank pain, vaginal bleeding, menstrual abnormality. Exam: 06:48 Eyes: Pupils equal round and reactive to light, extra-ocular motions intact. Lids and jr8 lashes normal. Conjunctiva and sclera are non-icteric and not injected. Cornea within normal limits. Periorbital areas with no swelling, redness, or edema. ENT: Nares patent. No nasal discharge, no septal abnormalities noted. Tympanic membranes are normal and external auditory canals are clear. Oropharynx with no redness, swelling, or masses, exudates, or evidence of obstruction, uvula midline. Mucous membranes moist. Neck: Trachea midline, no thyromegaly or masses palpated, and no cervical lymphadenopathy. Supple, full range of motion without nuchal rigidity, or vertebral point tenderness. No Meningismus. Cardiovascular: Regular rate and rhythm with a normal S1 and S2. No gallops, murmurs, or rubs. Normal PMI, no JVD. No pulse deficits. Respiratory: Lungs have equal breath sounds bilaterally, clear to auscultation and percussion. No rales, rhonchi or wheezes noted. No increased work of breathing, no retractions or nasal flaring. Abdomen/GI: Soft, non-tender, with normal bowel sounds. No distension or tympany. No guarding or rebound. No evidence of tenderness throughout. Back: No spinal tenderness. No costovertebral tenderness. Full range of motion. Skin: Warm, dry with normal turgor. Normal color with no rashes, no lesions, and no evidence of cellulitis. MS/ Extremity: Pulses equal, no cyanosis. Neurovascular intact. Full, normal range of motion. Neuro: Awake and alert, GCS 15, oriented to person, place, time, and situation. Cranial nerves II-XII grossly intact. Motor strength 5/5 in all extremities. Sensory grossly intact. Cerebellar exam normal. Normal gait. Vital Signs: 06:17 BP 146 / 86; Pulse 98; Resp 16; Temp 98.5; Pulse Ox 98% on R/A; Weight 105.69 kg (R); ak1 Height 5 ft. 6 in. (167.64 cm) (R); Pain 5/10; 06:17 Body Mass Index 37.61 (105.69 kg, 167.64 cm) ak1 MDM: 06:13 Patient medically screened. jr8 06:47 Data reviewed: vital signs, nurses notes, lab test result(s), and as a result, I will jr8 discharge patient. Data interpreted: Pulse oximetry: on room air is 98 %. Interpretation: normal. Counseling: I had a detailed discussion with the patient and/or guardian regarding: the historical points, exam findings, and any diagnostic results supporting the discharge/admit diagnosis, lab results, the need for outpatient follow up, a family practitioner, to return to the emergency department if symptoms worsen or persist or if there are any questions or concerns that arise at home. ED course: Discussed with patient that this is more than likely complication from the Augmentin. Will start her on one dose Diflucan. If not better to f/u with PCP. Offered to exam region if she though more was going on but patient feels comfortable with trying diflucan first . 03/15 06:49 Order name: Urine Dipstick--Ancillary (enter results) [facility] 03/15 06:13 Order name: Urine Test (obtain specimen); Complete Time: 06:49 [facility] 03/15 06:13 Order name: Urine Dipstick-Ancillary (obtain specimen); Complete Time: 06:49 [facility] 03/15 06:49 Order name: Urine --Ancillary (enter results) [facility] Administered Medications: 06:55 Drug: DiFLUcan 150 mg Route: PO; ao 06:55 Follow up: Response: Medication administered at discharge. ao Disposition: 03/15/19 06:48 Discharged to Home. Impression: Candidiasis of vulva and vagina. - Condition is Stable. - Discharge Instructions: Vaginal Yeast Infection, Adult. - Medication Reconciliation Form, Thank You Letter, Antibiotic Education, Prescription Opioid Use, Work release form form. - Follow up: Private Physician; When: 2 - 3 days; Reason: Recheck today's complaints, Continuance of care, Re-evaluation by your physician. - Problem is new. - Symptoms have improved. Addendum: 03/16/2019 19:02 Co-signature as Attending Physician, Ruddy dewitt Signatures: Dispatcher [employer] EDMS Ruddy Lyons MD MD pkl Roszak, Josh, PA PA jr8 Anjali Stoddard RN RN ak1 Nato Fountain RN RN ao Corrections: (The following items were deleted from the chart) 03/15 06:49 06:14 UA MICROSCOPIC+U.LAB.BRZ ordered. EDMS EDMS 06:52 06:47 ED course: Discussed with patient that this is more than likely complication from jr8 the Augmentin. Will start her on one dose Diflucan. If not better to f/u with PCP . jr8 07:09 06:48 03/15/2019 06:48 Discharged to Home. Impression: Candidiasis of vulva and vagina. ao Condition is Stable. Forms are Medication Reconciliation Form, Thank You Letter, Antibiotic Education, Prescription Opioid Use. Follow up: Private Physician; When: 2 - 3 days; Reason: Recheck today's complaints, Continuance of care, Re-evaluation by your physician. Problem is new. Symptoms have improved. jr8
[2019-03-15] MEDS ORDERED: FLUCONAZOLE 100 MG TAB ONE (06:52)
[2019-03-15 07:10] LABS: Urine Blood NEGATIVE (NEG); Urine Glucose NEGATIVE (NEG); Urine Protein 1+ (NEG); Urine Specific Gravity >1.030 (1.005-1.030); Urine pH 5.5 (5.0-7.0)
[2019-03-15 07:28] VITALS: BP 146/86; TEMP 98.5; O2SAT 98
== END 2019-03-15 07:09 | disposition home or self-care (01) ==
LOC: ER 06:09
DX: B37.3 Candidiasis of vulva and vagina (principal); Z88.6 Allergy status to analgesic agent; Z88.1 Allergy status to other antibiotic agents; F17.210 Nicotine dependence, cigarettes, uncomplicated
CPT/HCPCS: 81003; 81025; 99283

== ENCOUNTER 2020-10-22 05:46 | Emergency (ER) | payer OTHER ==
--- OUTSIDE RECORDS SUMMARY | 2020-10-22 05:54 | XMS REPORT | Continuity of Care Document ---
:1995 Author Organization [facility] t Address [address] [place] [address] Care Team Providers Name Role Phone Jovana Mendez Attending Clinician Visit, Nurse Attending Clinician Unavailable Problems This patient has no known problems. Allergies, Adverse Reactions, Alerts This patient has no known allergies or adverse reactions. Medications This patient has no known medications. Procedures This patient has no known procedures. 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UCATION IN[facility] TEACH[facility] [id number] Nurse [facility] [id number] MATERNAL [id number] & CHILD 107 [facility] 2020-08-20 2020-08-20 Office HERNÁN Eric [id number] 14:24:51 15:17:15 Visit Niharika Whaley SPECIAL EDUCATION INCLUSION TEACHER [id number] [facility] [id number] MATERNAL [id number] & CHILD [address] [place] [address] - [place] Results This patient has no known results.
--- NOTE | 2020-10-22 06:09 | EDPHYS ---
Physician Documentation [facility] Name: May Ojeda Age: 25 yrs Sex: Female : 1995 Arrival Date: 10/22/2020 Time: 05:49 Bed Waiting Private MD: ED Physician Donavan Greco HPI: 10/22 06:07 This 25 yrs old Female presents to ER via Unassigned with complaints of ma2 Toothache. 06:07 The patient presents with pain. Onset: The symptoms/episode began/occurred gradually, 1 ma2 day(s) ago. Associated signs and symptoms: Pertinent negatives: dysphagia, nausea, redness in area, swelling. Severity of symptoms: At their worst the symptoms were moderate, in the emergency department the symptoms are unchanged. The patient has experienced a previous episode. 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 - Social history:: Patient/guardian denies using alcohol, street drugs, The patient lives with family, Smoking status: Patient reports the use of cigarette tobacco products, smokes one-half pack cigarettes per day. - Family history:: not pertinent. ROS: 06:07 Constitutional: Negative for fever, chills, and weight loss. ma2 06:07 All other systems are negative. Exam: 06:07 Constitutional: This is a well developed, well nourished patient who is awake, alert, ma2 and in no acute distress. Head/Face: Normocephalic, atraumatic. Eyes: Pupils equal round and reactive to light, extra-ocular motions intact. Lids and lashes normal. Conjunctiva and sclera are non-icteric and not injected. Cornea within normal limits. Periorbital areas with no swelling, redness, or edema. ENT: left lower 2nd molar dental infection, otherwise Nares patent. No nasal discharge, no septal abnormalities noted. Tympanic membranes are normal and external auditory canals are clear. Oropharynx with no redness, swelling, or masses, exudates, or evidence of obstruction, uvula midline. Mucous membranes moist. Neck: Trachea midline, no thyromegaly or masses palpated, and no cervical lymphadenopathy. Supple, full range of motion without nuchal rigidity, or vertebral point tenderness. No Meningismus. Chest/axilla: Normal chest wall appearance and motion. Nontender with no deformity. No lesions are appreciated. Cardiovascular: Regular rate and rhythm with a normal S1 and S2. No gallops, murmurs, or rubs. Normal PMI, no JVD. No pulse deficits. Respiratory: Lungs have equal breath sounds bilaterally, clear to auscultation and percussion. No rales, rhonchi or wheezes noted. No increased work of breathing, no retractions or nasal flaring. Abdomen/GI: Soft, non-tender, with normal bowel sounds. No distension or tympany. No guarding or rebound. No evidence of tenderness throughout. Vital Signs: 06:06 BP 137 / 92; Pulse 79; Resp 16 S; Temp 97.9(TE); Pulse Ox 100% on R/A; Weight 99.79 kg bb (R); Height 5 ft. 6 in. (167.64 cm) (R); Pain 10/10; 06:06 Body Mass Index 35.51 (99.79 kg, 167.64 cm) bb MDM: 06:07 Differential diagnosis: dental caries, gingivitis, pericoronitis, aphthous ulcers. Data ma2 reviewed: vital signs, nurses notes. Counseling: I had a detailed discussion with the patient and/or guardian regarding: the historical points, exam findings, and any diagnostic results supporting the discharge/admit diagnosis, the presence of at least one elevated blood pressure reading (>120/80) during this emergency department visit, the need for outpatient follow up. Response to treatment: the patient's symptoms have markedly improved after treatment. 06:09 Patient medically screened. ma2 Administered Medications: No medications were administered Disposition Summary: 10/22/20 06:09 Discharge Ordered Location: Home ma2 Condition: Stable ma2 Diagnosis - Dental caries, unspecified - left lower 2nd molar ma2 Followup: ma2 - With: Private Physician - When: Tomorrow - Reason: If symptoms return, Continuance of care Discharge Instructions: - Discharge Summary Sheet ma2 - Dental Caries, Adult ma2 Forms: - Medication Reconciliation Form ma2 - Thank You Letter ma2 - Antibiotic Education ma2 - Prescription Opioid Use ma2 Prescriptions: - Augmentin 875-125 mg Oral Tablet - take 1 tablet by ORAL route every 12 hours for 10 days; 20 tablet; Refills: 0, ma2 Product Selection Permitted - Diclofenac Sodium 75 mg Oral Tablet Sustained Release - take 1 tablet by ORAL route 2 times per day; 30 tablet; Refills: 0, Product ma2 Selection Permitted Signatures: Ericka Noel RN RN Donavan Bennett MD MD ma2
--- NOTE | 2020-10-22 06:09 | ER ---
Nurse's Notes [facility] Name: May Ojeda Age: 25 yrs Sex: Female : 1995 Arrival Date: 10/22/2020 Time: 05:49 Bed Waiting Private MD: Diagnosis: Dental caries, unspecified-left lower 2nd molar Presentation: 10/22 06:06 Chief complaint: Patient states: she has been having a toothache since Wednesday the pain bb is getting worse and worse. Coronavirus screen: At this time, the client does not indicate any symptoms associated with coronavirus-19. Ebola Screen: No symptoms or risks identified at this time. Initial Sepsis Screen: Does the patient meet any 2 criteria? No. Patient's initial sepsis screen is negative. Does the patient have a suspected source of infection? No. Patient's initial sepsis screen is negative. Risk Assessment: Do you want to hurt yourself or someone else? Patient reports no desire to harm self or others. Onset of symptoms was October 18, 2020. 06:06 Method Of Arrival: Ambulatory bb 06:06 Acuity: SELENE 5 bb Triage Assessment: 06:08 General: Appears in no apparent distress. uncomfortable, Behavior is cooperative, bb anxious. Pain: Complains of pain in left jaw Pain currently is 10 out of 10 on a pain scale. EENT: Reports pain in left jaw. Neuro: Level of Consciousness is awake, alert, obeys commands, Oriented to person, place, time, situation. Cardiovascular: Capillary refill < 3 seconds Patient's skin is warm and dry. Respiratory: Airway is patent Respiratory effort is even, unlabored, Respiratory pattern is regular. GI: No signs and/or symptoms were reported involving the gastrointestinal system. Derm: Skin is pink, warm \T\ dry. Musculoskeletal: Circulation, motion, and sensation intact. 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 - Social history:: Patient/guardian denies using alcohol, street drugs, The patient lives with family, Smoking status: Patient reports the use of cigarette tobacco products, smokes one-half pack cigarettes per day. - Family history:: not pertinent. Screenin:12 Abuse screen: Denies threats or abuse. Nutritional screening: No deficits noted. bb Tuberculosis screening: No symptoms or risk factors identified. Fall Risk None identified. Assessment: 06:11 Reassessment: pt seen by Dr Junior in triage, treated and discharged. bb 06:18 Reassessment: pt verbalized understanding of and agrees to plan of care discharge bb instructions given pt ambulated with steady gait to exit. Vital Signs: 06:06 BP 137 / 92; Pulse 79; Resp 16 S; Temp 97.9(TE); Pulse Ox 100% on R/A; Weight 99.79 kg bb (R); Height 5 ft. 6 in. (167.64 cm) (R); Pain 10/10; 06:06 Body Mass Index 35.51 (99.79 kg, 167.64 cm) bb ED Course: 05:49 Patient arrived in ED. bp1 06:07 Donavan Greco MD is Attending Physician. ma2 06:08 Triage completed. bb 06:08 Arm band placed on Patient Dr Junior in triage for pt evaluation. bb 06:12 Patient has correct armband on for positive identification. bb 06:19 No provider procedures requiring assistance completed. Patient did not have IV access bb during this emergency room visit. Administered Medications: No medications were administered Outcome: 06:09 Discharge ordered by . ma2 06:19 Discharged to home ambulatory. bb 06:19 Condition: stable 06:19 Discharge instructions given to patient, Instructed on discharge instructions, follow up and referral plans. medication usage, Demonstrated understanding of instructions, follow-up care, medications, Prescriptions given X 2. 06:19 Patient left the ED. bb Signatures: Ericka Noel RN RN bb Donavan Greco MD MD nd2 Kierra Scott bp1
[2020-10-22 06:27] VITALS: BP 137/92; TEMP 97.9; O2SAT 100
== END 2020-10-22 06:19 | disposition home or self-care (01) ==
LOC: ER 05:46
DX: K02.9 Dental caries, unspecified (principal); E78.00 Pure hypercholesterolemia, unspecified; F17.210 Nicotine dependence, cigarettes, uncomplicated; Z88.1 Allergy status to other antibiotic agents; Z88.5 Allergy status to narcotic agent
CPT/HCPCS: 99282